=== PATIENT | female | born 1990 | race Caucasian/White ===

== ENCOUNTER 2017-01-24 16:59 | Inpatient (IN) | payer OTHER ==
[~2017-01-24] VITALS: Ht 160 cm; Wt 74.5 kg
[2017-01-24] VITALS (17 sets, daily range): BP systolic 125–154; BP diastolic 72–95; PULSE 81–104; TEMP 97.5–99
[2017-01-24] MEDS ORDERED: PRENATAL MVI (17:27)
[2017-01-24 20:08] LABS: BASO % 0.2 % (0.0-2.0); EOS # 0.2 (0.0-0.7); EOS % 1.1 % (0-4.0); GRAN # 11.7 (1.4-6.5); GRAN % 75.1 % (42.2-75.2); HEMATOCRIT 37.2 % (37.0-47.0); HEMOGLOBIN 12.7 g/dl (12.5-16.0); LYMPH % 12.5 % (20.0-51.0); MEAN CELL VOLUME 89 fl (80.0-100.0); MEAN CORPUSCULAR HEMOGLOBIN 30 pg (27.0-31.0); MEAN CORPUSCULAR HGB CONC 34 g/dl (33.0-37.0); MONO # 1.5 (0.1-0.6); MONO % 9.8 % (1.7-9.3); PLATELET COUNT 198 K/mm3 (130-400); RED BLOOD COUNT 4.19 M/mm3 (4.10-5.30); REDCELL DISTRIBUTION WIDTH-CV 13.2 % (11.5-14.5); WHITE BLOOD COUNT 15.6 K/mm3 (4.8-10.8)
[2017-01-25] VITALS (29 sets, daily range): BP systolic 110–152; BP diastolic 67–94; PULSE 87–125; TEMP 97.4–98.8
[2017-01-26] VITALS: BP 118/65; PULSE 89; TEMP 98.2
[2017-01-26 04:45] VITALS: BP 100/55; PULSE 91; TEMP 97.9
[2017-01-26 06:30] VITALS: BP 120/80; PULSE 94; TEMP 97.6
[2017-01-26] MEDS ORDERED: IBU800 M1 PO (08:25)
[2017-01-26] MEDS ORDERED: PERCOCET 325 MG1 TA2 PO (08:25)
== END 2017-01-26 13:00 | disposition home or self-care (01) | DRG 775 ==
LOC: LDRO 16:59 → LDR 19:35 → OB 19:35
PROVIDERS: Obstetrics & Gynecology
PROC: 10D07Z6 Extraction of Products of Conception, Vacuum, Via Natural or Artificial Opening (ICD-10-PCS; principal; 2017-01-25)
PROC: 0KQM0ZZ Repair Perineum Muscle, Open Approach (ICD-10-PCS; 2017-01-25)
PROC: 0UQM0ZZ Repair Vulva, Open Approach (ICD-10-PCS; 2017-01-25)
DX: O48.0 Post-term pregnancy (principal); O76 Abnormality in fetal heart rate and rhythm complicating labor and delivery; O70.1 Second degree perineal laceration during delivery; O70.0 First degree perineal laceration during delivery; Z3A.40 40 weeks gestation of pregnancy; Z37.0 Single live birth
CPT/HCPCS: J2590; J7120